=== PATIENT | male | born 1955 | race Caucasian/White ===

== ENCOUNTER → 2021-04-16 | Outpatient (CLI) | payer BC ==
--- NOTE | 2021-04-16 15:56 | CONS ---
CONSULTATION Js is 66, referred to me for sleep apnea evaluation. The patient has loud snoring and dry mouth upon arousal in the morning. He feels fatigued and sleepy. Alma score is 4. He goes to bed around 9 p.m., wakes up at 6 a.m. in the morning. Sleep is fragmented. The patient wakes up occasionally to urinate. He prefers to sleep on his side. Mouth breather in general. He is known to have extensive comorbidities, including obesity with interval weight gain over the years. He has also history of endocarditis many years back which resulted in mitral valve damage, and the patient had mitral valve repair. Currently he has a pacemaker in place. He has hypertension and hyperlipidemia as other comorbid conditions. PAST MEDICAL HISTORY: 1. Morbid obesity. 2. Valvular heart disease with mitral valve regurgitation post endocarditis, status post mitral valve repair. 3. History of pacemaker insertion. 4. Hyperlipidemia. 5. Hypertension. 6. Obesity. PAST SURGICAL HISTORY: Past surgical history includes mitral valve repair through a thoracotomy, cholecystectomy, appendectomy, history of pacemaker insertion. DRUG ALLERGIES: PENICILLIN. OUTPATIENT MEDICATIONS: Outpatient medication list includes Coreg 6.25 mg twice a day, Lipitor 20 mg p.o. daily, lisinopril/hydrochlorothiazide 20/25 one tablet a day, and Coumadin 10 mg p.o. daily. SOCIAL HISTORY: Nonsmoker for now. He is a former smoker. Quit smoking 20 years ago. No history of alcoholism. No history of IV drugs. FAMILY HISTORY: Negative for sleep apnea. REVIEW OF SYSTEMS: Fourteen-point review of systems was done. Positive findings are mentioned in history of present illness. Of significance is the significant amount of weight gain that the patient has accumulated over the years. No sleep paralysis. No hallucinations. No cataplexy. Takes naps occasionally. PHYSICAL EXAMINATION: BP is 149/74, pulse 60, respirations 16, temperature 98.0, saturation 96% on room air. Height is 5 feet 9 inches, weight is 212. BMI is 46. Neck size is 18-1/4 inches. GENERAL APPEARANCE: Calm, comfortable. HEAD: Atraumatic, normocephalic. Neck is supple. No JVD. No goiter or neck masses. Mallampati class IV. LUNGS: Clear to auscultation. Heart sounds are regular. Positive S1, S2. No S3, S4. No murmurs. The patient has a pacemaker pocket over the left anterior chest area. ABDOMEN: Obese, soft, nontender. Organs cannot be palpated. There is no direct tenderness, rebound tenderness or guarding. EXTREMITIES: Trace edema. There is no cyanosis or clubbing. NEUROLOGIC: Awake, alert. There is no focal neurological deficit. IMPRESSION: 1. Hypersomnia/fatigue with obvious features of obstructive sleep apnea that need to be further investigated. Alma score subjectively is low at 4. Nevertheless, the patient has loud snoring, witnessed apneas and significant crowding of posterior pharynx with a Mallampati class IV, and the patient is morbidly obese with a BMI of 46. Further investigation is warranted. 2. Mitral valve disease, post mitral valve repair. 3. Hypertension. 4. Hyperlipidemia. 5. History of pacemaker insertion. PLAN: 1. Proceed with a screening polysomnogram in the lab. 2. Encourage weight loss. 3. Encourage maintaining good sleep hygiene measures. 4. Follow up with Cardiology. 5. Follow up with me in the sleep center to discuss results after completing the screening polysomnogram. MMODL / IJN: [id number] /
== END ==
LOC: SLEEP 13:24
PROVIDERS: ATTEND Internal Medicine Critical Care Medicine
DX: G47.33 Obstructive sleep apnea (adult) (pediatric) (principal); E66.01 Morbid (severe) obesity due to excess calories; I38 Endocarditis, valve unspecified; I10 Essential (primary) hypertension; E78.5 Hyperlipidemia, unspecified; Z95.0 Presence of cardiac pacemaker; Z68.42 Body mass index [BMI] 45.0-49.9, adult; Z98.890 Other specified postprocedural states
CPT/HCPCS: 99202